=== PATIENT | female | born 2000 | race African-American/Black ===

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

== ENCOUNTER 2020-04-28 05:37 | Emergency (ER) | payer OTHER ==
[~2020-04-28 05:37] MED LIST changes: +AZIT250T6 PO; +BENZ100C PO; +METH4TAB2 PO
[2020-04-28] MEDS ORDERED: TRAM50TA PO (14:32)
[2020-04-28] MEDS ORDERED: METO10TA81 PO (14:32)
== END 2020-04-28 06:06 | disposition left against medical advice (07) ==
LOC: ER 05:37
DX: K80.80 Other cholelithiasis without obstruction (principal); Z53.21 Procedure and treatment not carried out due to patient leaving prior to being seen by health care provider

== ENCOUNTER 2020-04-28 11:20 | Emergency (ER) | payer OTHER ==
[~2020-04-28] VITALS: Ht 152.4 cm; Wt 100.0 kg
[2020-04-28] MEDS ORDERED: IV NORMAL SALINE 1000ML BAG 1,000 ML IV SCH (11:45)
--- NOTE | 2020-04-28 12:01 | PHYS DOC ---
Past Medical History Past Medical History: No Pertinent History Past Surgical History: No Surgical History Smoking Status: Never Smoker Alcohol Use: None Drug Use: Marijuana General Adult EDM: Chief Complaint: ABDOMINAL PAIN HPI: HPI: Patient is a 20 year old female who presented to ER for evaluation of epig astric abdominal pain, right upper quadrant abdominal pain that been going on for a week. Patient went to [facility] in [place] [place] yesterday for the same problem, lab work and ultrasound of her abdomen pelvic show that she had gallstones but no evidence of gallbladder infection, her lab work was normal, her liver function tests were normal. Patient was discharged home, she presented here because the pain she says she cannot keep anything down. Patient denies any cough or fever. Review of Systems: Review of Systems: Constitutional: Denies fever or chills. [] Eyes: Denies change in visual acuity. [] HENT: Denies nasal congestion or sore throat. [] Respiratory: Denies cough or shortness of breath. [] Cardiovascular: Denies chest pain or edema. [] GI: Positive abdominal pain with nausea vomiting. No diarrhea : Denies dysuria. [] Musculoskeletal: Denies back pain or joint pain. [] Integument: Denies rash. [] Neurologic: Denies headache, focal weakness or sensory changes. [] Endocrine: Denies polyuria or polydipsia. [] Lymphatic: Denies swollen glands. [] Psychiatric: Denies depression or anxiety. [] Heart Score: Risk Factors: Risk Factors: DM, Current or recent (<one month) smoker, HTN, HLP, family history of CAD, obesity. Risk Scores: Score 0 - 3: 2.5% MACE over next 6 weeks - Discharge Home Score 4 - 6: 20.3% MACE over next 6 weeks - Admit for Clinical Observation Score 7 - 10: 72.7% MACE over next 6 weeks - Early Invasive Strategies Current Medications: Current Medications Medications (Trade) Dose Ordered Sig/Carol Start Time Stop Time Status Last Admin Dose Admin Ondansetron HCl (Zofran) 4 mg 1X ONCE 04/28/20 12:15 04/28/20 12:16 Sodium Chloride 1,000 ml @ 1,000 mls/hr Q1H 04/28/20 11:45 04/28/20 12:44 Allergies: Allergies: Allergies Coded Allergies Type Severity Reaction Last Updated Verified No Known Drug Allergies 08/16/16 No Physical Exam: PE: Constitutional: Well developed, well nourished, no acute distress, non-toxic appearance. [] HENT: Normocephalic, atraumatic, bilateral external ears normal, oropharynx moist, no oral exudates, nose normal. [] Eyes: PERRLA, EOMI, conjunctiva normal, no discharge. [] Neck: Normal range of motion, no tenderness, supple, no stridor. [] Cardiovascular:Heart rate regular rhythm, no murmur [] Lungs & Thorax: Bilateral breath sounds clear to auscultation [] Abdomen: Bowel sounds normal, soft, There is RUQ tenderness TO PALPATION, no masses, no pulsatile masses. [] Skin: Warm, dry, no erythema, no rash. [] Back: No tenderness, no CVA tenderness. [] Extremities: No tenderness, no cyanosis, no clubbing, ROM intact, no edema. [] Neurologic: Alert and oriented X 3, normal motor function, normal sensory function, no focal deficits noted. [] Psychologic: Affect normal, judgement normal, mood normal. [] Current Patient Data: Labs: Laboratory Tests Test 04/28/20 11:34 04/28/20 11:59 Urine Collection Type Void Urine Color Yellow Urine Clarity Clear Urine pH 8.5 Urine Specific Sheridan 1.025 Urine Protein 30 mg/dL Urine Glucose (UA) Negative mg/dL Urine Ketones (Stick) Trace mg/dL Urine Blood Negative Urine Nitrite Negative Urine Bilirubin Negative Urine Urobilinogen Dipstick 1.0 mg/dL Urine Leukocyte Esterase Small Urine RBC 1-2 /HPF Urine WBC 0 /HPF Urine Squamous Epithelial Cells Mod /LPF Urine Bacteria 0 /HPF Urine Mucus Mod /LPF Urine Opiates Screen Neg Urine Methadone Screen Neg Urine Barbiturates Neg Urine Phencyclidine Screen Neg Urine Amphetamine/Methamphetamine Neg Urine Benzodiazepines Screen Neg Urine Cocaine Screen Neg Urine Cannabinoids Screen Pos Urine Ethyl Alcohol Neg White Blood Count 10.0 x10^3/uL Red Blood Count 4.56 x10^6/uL Hemoglobin 13.5 g/dL Hematocrit 40.2 % Mean Corpuscular Volume 88 fL Mean Corpuscular Hemoglobin 30 pg Mean Corpuscular Hemoglobin Concent 34 g/dL Red Cell Distribution Width 13.1 % Platelet Count 228 x10^3/uL Neutrophils (%) (Auto) 83 % Lymphocytes (%) (Auto) 14 % Monocytes (%) (Auto) 3 % Eosinophils (%) (Auto) 0 % Basophils (%) (Auto) 0 % Neutrophils # (Auto) 8.3 x10^3/uL Lymphocytes # (Auto) 1.3 x10^3/uL Monocytes # (Auto) 0.3 x10^3/uL Eosinophils # (Auto) 0.0 x10^3/uL Basophils # (Auto) 0.0 x10^3/uL Sodium Level 139 mmol/L Potassium Level 3.7 mmol/L Chloride Level 103 mmol/L Carbon Dioxide Level 23 mmol/L Anion Gap 13 Blood Urea Nitrogen 8 mg/dL Creatinine 1.0 mg/dL Estimated GFR (Cockcroft-Gault) 85.5 BUN/Creatinine Ratio 8 Glucose Level 106 mg/dL Calcium Level 9.1 mg/dL Total Bilirubin 0.7 mg/dL Aspartate Amino Transf (AST/SGOT) 17 U/L Alanine Aminotransferase (ALT/SGPT) 28 U/L Alkaline Phosphatase 49 U/L Total Protein 7.7 g/dL Albumin 3.8 g/dL Albumin/Globulin Ratio 1.0 Lipase 119 U/L Serum Test, Qualitative Negative Current Medications Medications (Trade) Dose Ordered Sig/Carol Route PRN Reason Start Time Stop Time Status Last Admin Dose Admin Sodium Chloride 1,000 ml @ 1,000 mls/hr Q1H IV 04/28/20 11:45 04/28/20 12:44 DC 04/28/20 12:51 Ondansetron HCl (Zofran) 4 mg 1X ONCE IVP 04/28/20 12:15 04/28/20 12:16 DC 04/28/20 12:51 Morphine Sulfate (Morphine Sulfate) 4 mg 1X ONCE IV 04/28/20 13:30 04/28/20 13:31 DC 04/28/20 13:16 Metoclopramide HCl (Reglan Vial) 10 mg 1X ONCE IVP 04/28/20 13:30 04/28/20 13:31 DC EKG: EKG: [] Radiology/Procedures: Radiology/Procedures: [][facility] [address] [place], [place] [id number] IMAGING REPORT Signed PATIENT: MCKEONCAITLIN AGEE I ACCOUNT: [id number] : 2000 LOCATION: ER AGE: 20 SEX: F EXAM STATUS: REG ER ORD. PHYSICIAN: PHI MAGANA DO REASON: RUQ abdominal pain PROCEDURE: ABDOMEN LTD STUDY: Realtime grayscale and color Doppler ultrasonography of the right upper quadrant INDICATION: Right upper quadrant pain. COMPARISON: Correlation is made to a CT abdomen/pelvis from 06/11/2017. Findings: Much of the gallbladder lumen is filled with stones/sludge. The gallbladder wall is not significantly thickened nor is there appreciable pericholecystic fluid. No sonographic Major's sign was observed. Within normal limits size and echogenicity of the liver. Normal common bile duct caliber at 0.4 cm. The right kidney measures 10.8 cm in length. Normal cortical thickness and echogenicity. No hydronephrosis. The partially visualized pancreas is unremarkable. Patent main portal vein with hepatopedal flow. Patent IVC at the liver. Impression: 1. Gallstones/sludge filling much of the gallbladder lumen but without ancillary findings by sonography diagnostic of acute cholecystitis. If there is ongoing concern a HIDA scan could be performed to fully assess cystic duct patency. 2. Unremarkable liver, right kidney, partially imaged pancreas and biliary tree. Electronically signed by: KADEN LYNNE MD (04/28/2020 1:51 PM) [id number] DICTATED and SIGNED BY: KADEN LYNNE MD DATE: 04/28/20 [id number] 0 Course & Med Decision Making: Course & Med Decision Making Pertinent Labs and Imaging studies reviewed. (See chart for details) Patient is a 20-year-old female who presented to ER due to nausea vomiting and right upper quadrant abdominal pain, she was found to have multiple gallstones. There is no evidence of acute cholecystitis. Her lab work was normal. Patient was given nausea medication and pain medication in the ER, she feel much better. Patient will be discharged home. She will need to call your general surgeon for outpatient evaluation and treatment. Dragon Disclaimer: Dragshante Disclaimer: This electronic medical record was generated, in whole or in part, using a voice recognition dictation system. Departure Departure Impression: Primary Impression: Biliary colic Disposition: 01 DC HOME SELF CARE/HOMELESS Condition: STABLE Referrals: NERY STEARNS MD (PCP) MAGGI RADER MD Please call this General Surgeon for outpatient follow up next week. Patient Instructions: Biliary Colic Additional Instructions: Thank you for visiting our Emergency Department. We appreciate you trusting us with your care. If any additional problems come up don't hesitate to return to visit us. Please follow up with your primary care provider so they can plan additional care if needed and know about the problem that you had. If symptoms worsen come back to the Emergency Department. Any concerning symptoms that start such as chest pain, shortness of air, weakness or numbness on one side of the body, running high fevers or any other concerning symptoms return to the ER. Scripts Tramadol Hcl (TRAMADOL HCL) 50 Mg Tablet 50 MG PO Q6HRS PRN for PAIN, #15 TAB 0 Refills Prov: PHI MAGANA DO 04/28/20 Metoclopramide Hcl (REGLAN) 10 Mg Tablet 1 TAB PO QID PRN for NAUSEA for 7 Days, #28 TAB 0 Refills before food and bedtime Prov: PHI MAGANA DO 04/28/20 PHI MAGANA DO Apr 28, 2020 12:01
[2020-04-28 12:15] LABS: BILIRUBIN,URINE NEGATIVE (NEG); CLARITY,URINE CLEAR; COLOR,URINE YELLOW; NITRITE,URINE NEGATIVE (NEG); PH,URINE 8.5 (<5.0-8.0); PROTEIN,URINE 30 mg/dL (NEG-TRACE)
[2020-04-28] MEDS ORDERED: ONDANSETRON PF 4 MG/2 ML VIAL. IVP ONE (12:15)
[2020-04-28 12:16] LABS: AMPHETAMINE/METHAMPHETAMINE NEG (NEG); BARBITURATES NEG (NEG); BENZODIAZEPINES NEG (NEG); CANNABINOIDS POS (NEG); COCAINE NEG (NEG); METHADONE NEG (NEG); OPIATES NEG (NEG); PHENCYCLIDINE NEG (NEG)
[2020-04-28 12:17] LABS: BASO % 0 % (0-3); EOS % 0 % (0-3); HEMATOCRIT 40.2 % (36.0-47.0); HEMOGLOBIN 13.5 g/dL (12.0-15.5); LYMPH # 1.3 x10^3/uL (1.0-4.8); LYMPH % 14 % (24-48); MEAN CORPUSCULAR HEMOGLOBIN 30 pg (25-35); MEAN CORPUSCULAR HGB CONC 34 g/dL (31-37); MEAN CORPUSCULAR VOLUME 88 fL (79-100); MONO # 0.3 x10^3/uL (0.0-1.1); MONO % 3 % (0-9); NEUT # 8.3 x10^3/uL (1.8-7.7); NEUT % 83 % (31-73); PLATELET COUNT 228 x10^3/uL (140-400); RED BLOOD COUNT 4.56 x10^6/uL (3.50-5.40); RED CELL DISTRIBUTION WIDTH 13.1 % (11.5-14.5)
[2020-04-28 12:24] LABS: CALCIUM 9.1 mg/dL (8.5-10.1); GFR 85.5; POTASSIUM 3.7 mmol/L (3.5-5.1)
[2020-04-28 12:30] LABS: ALBUMIN 3.8 g/dL (3.4-5.0); TOTAL BILIRUBIN 0.7 mg/dL (0.2-1.0); TOTAL PROTEIN 7.7 g/dL (6.4-8.2)
[2020-04-28 12:33] LABS: PREG TEST PT QUAL NEGATIVE (NEG)
[2020-04-28 12:53] LABS: BACTERIA,URINE 0 /HPF (0-FEW); WBC,URINE 0 /HPF (0-4)
[2020-04-28] MEDS ORDERED: MORPHINE SULFATE 4 MG/ML VIAL. IV ONE (13:30)
[2020-04-28] MEDS ORDERED: METOCLOPRAMIDE HCL 10 MG/2 ML VIAL. IVP ONE (13:30)
--- NOTE | 2020-04-28 13:54 | RAD ---
STUDY: Realtime grayscale and color Doppler ultrasonography of the right upper quadrant INDICATION: Right upper quadrant pain. COMPARISON: Correlation is made to a CT abdomen/pelvis from 06/11/2017. Findings: Much of the gallbladder lumen is filled with stones/sludge. The gallbladder wall is not significantly thickened nor is there appreciable pericholecystic fluid. No sonographic Major's sign was observed. Within normal limits size and echogenicity of the liver. Normal common bile duct caliber at 0.4 cm. The right kidney measures 10.8 cm in length. Normal cortical thickness and echogenicity. No hydroneph rosis. The partially visualized pancreas is unremarkable. Patent main portal vein with hepatopedal flow. Patent IVC at the liver. Impression: 1. Gallstones/sludge filling much of the gallbladder lumen but without ancillary findings by sonogra phy diagnostic of acute cholecystitis. If there is ongoing concern a HIDA scan could be performed to fully assess cystic duct patency. 2. Unremarkable liver, right kidney, partially imaged pancreas and biliary tree. Electronically signed by: KADEN LYNNE MD (04/28/2020 1:51 PM) [id number]
[2020-04-28 14:20] VITALS: BP 114/56
[2020-04-28] MEDS ORDERED: TRAM50TA PO (14:32)
[2020-04-28] MEDS ORDERED: METO10TA81 PO (14:32)
== END 2020-04-28 14:55 | disposition home or self-care (01) ==
LOC: ER 11:20
DX: K80.50 Calculus of bile duct without cholangitis or cholecystitis without obstruction (principal)
CPT/HCPCS: 36415; 76705; 80053; 80307; 81001; 83690; 84703; 85025; 87086; 96361; 96374; 96375; 99285; J2270; J2405; J7030

== ENCOUNTER → 2020-05-14 | Outpatient (CLI) | payer OTHER ==
[2020-04-28 14:20] VITALS: BP 114/56
[~2020-05-14] MED LIST changes: +FAMO20TA5 PO; +IBUP-1060 PO; +IBUP1TAB PO; +METO10TA81 PO; +TRAM50TA PO
== END ==
LOC: LAB 10:23
PROVIDERS: ATTEND Surgery
DX: Z01.812 Encounter for preprocedural laboratory examination (principal); K80.20 Calculus of gallbladder without cholecystitis without obstruction; Z20.822 Contact with and (suspected) exposure to COVID-19
CPT/HCPCS: U0003

== ENCOUNTER 2020-05-18 07:45 | Day surgery (SDC) | payer BC, OTHER ==
[~2020-05-18] VITALS: Ht 152.4 cm; Wt 100.0 kg
[~2020-05-18 07:45] MED LIST changes: +HYDROmorphone 2 MG/ML VIAL IVP PRN; -IBUP1TAB PO; +IV RINGERS,LACTATED 1000ML 1,000 ML IV SCH; +fentaNYL PF VIAL 100 MCG/2 ML VIAL IVP PRN
[2020-05-18] MEDS ORDERED: ONDANSETRON PF 4 MG/2 ML VIAL. ONE (08:19)
[2020-05-18] MEDS ORDERED: DEXAMETHASONE SOD PHOS 4 MG/ML VIAL ONE (08:19)
[2020-05-18] MEDS ORDERED: LIDOCAINE 2% PF 5 ML VIAL. ONE (08:19)
[2020-05-18] MEDS ORDERED: SEVOFLURANE 61 TO 120 MINUTES. IH ONE (08:19)
[2020-05-18] MEDS ORDERED: fentaNYL PF VIAL 100 MCG/2 ML VIAL ONE ×2 (08:19→10:24)
[2020-05-18] MEDS ORDERED: PROPOFOL 10 MG/ML (20ML) VIAL. IV ONE (08:19)
[2020-05-18] MEDS ORDERED: KETOROLAC 30 MG/ML VIAL. ONE (08:19)
[2020-05-18] MEDS ORDERED: ROCURONIUM 50 MG/5 ML VIAL. ONE (08:20)
[2020-05-18] MEDS ORDERED: MIDAZOLAM HCL/PF 2 MG/2 ML VIAL. ONE (08:20)
[2020-05-18] MEDS ORDERED: BUPIVACAINE MPF 0.5% 30 ML VIAL. ONE (09:00)
[2020-05-18] MEDS ORDERED: SURGICEL HEMOSTAT 4X8 EACH. ONE (09:00)
[2020-05-18] MEDS ORDERED: IOHEXOL 300 MG/ML 50 ML VIAL. ONE (09:00)
[2020-05-18] MEDS ORDERED: ESMOLOL 100 MG/10 ML VIAL. IVP ONE (09:43)
[2020-05-18] MEDS ORDERED: NEOSTIGMINE METHYLSULFATE 5 MG/5 ML SYRINGE. ONE (09:52)
[2020-05-18] MEDS ORDERED: GLYCOPYRROLATE 1 MG/5 ML VIAL. ONE (09:52)
--- NOTE | 2020-05-18 10:30 | RAD ---
3 intraoperative spot views of the cholangiogram without comparison for cholecystectomy. Findings and impression: 3 intraoperative spot views demonstrate no residual filling defects within the visualized intrahepatic ducts, with rapid egress of contrast into the duodenum. Fluoroscopy time: 0.12 minutes. Electronically signed by: Levon Latham MD (05/18/2020 10:27 AM) [id number]
--- NOTE | 2020-05-18 10:31 | PDOC4 ---
Operative Note Operative Note Operative Note: Preoperative Diagnosis: Symptomatic cholelithiasis Postoperative Diagnosis: Same Procedure: Laparoscopic cholecystectomy with intraoperative cholangiogram Surgeons: Freddie Boxer Operator: Moses PEREZ Anesthesia: Gen. Estimated Blood Loss: 10 mL Specimen: Gallbladder to pathology Drains: None Complications: None Indications: The patient is a 20-year-old female who is been experiencing recurrent upper abdominal pain consistent with biliary colic. Surgical treatment was offered by means of a laparoscopic cholecystectomy. The risks of surgery were discussed which include bleeding, infection, bile duct injury, bile leak, pain, the potential for additional surgeries or procedures. The patient understands and would like to proceed. Description: The patient was taken to the operating room and laid supine on the operating table. General anesthesia was performed. The abdomen was prepped with ChloraPrep and draped in a standard surgical fashion. A small infraumbilical incision was made with a scalpel. The Veress needle was then inserted and a pneumoperitoneum was then created. A 5 mm trocar was then inserted and the laparoscope was introduced. In the upper midabdomen a 5 mm trocar was inserted and in the right upper quadrant two 2.3 mm mini lap graspers were inserted. The gallbladder was retracted cephalad. The cystic duct was dissected free from surrounding tissues. One clip was placed on the duct near the gallbladder junction. An opening was made in the duct and a cholangiocatheter placed within and secured with a clip. Using contrast dye and fluoroscopy an intraoperative cholangiogram was performed that appeared unremarkable. The clip and catheter were then withdrawn. Three clips were placed on the cystic duct and it was divided. The cystic artery was then identified, dissected free, doubly clipped and divided as well. The gallbladder was then mobilized away from the liver with cautery. The umbilical 5 millimeter trocar was exchanged for an 11 millimeter trocar. The gallbladder was then placed in an endoscopic bag and extracted at the umbilical trocar site. The fascia there was closed with an 0 Vicryl suture. All blood and irrigation fluid was suctioned and hemostasis was good. The remaining ports were removed and the pneumoperitoneum was relieved. The skin incisions were injected with half percent Marcaine with epinephrine, and all were closed using 4-0 Monocryl suture. Steri-Strips and dressings were then applied. The patient tolerated the procedure well and was sent to the recovery room in stable condition. At the end of the case all counts were correct. MAGGI RADER MD May 18, 2020 10:31
--- NOTE | 2020-05-18 10:35 | DISCH ---
DISCHARGE INSTRUCTIONS Condition on Discharge Condition on Discharge: Stable Activity After Discharge Activity Instructions for Disc: Other, see below (no lifting over 20 lbs X 2 weeks) Diet after Discharge Diet after Discharge: Regular Wound Incision Care Wound/Incision Care: Other, see below (may remove bandaids and shower tomorrow, steristrips fall off on their own) Follow-Up Follow up with: Dr Rader in 2 weeks in office, call for appt [phone] MAGGI RADER MD May 18, 2020 10:35
[2020-05-18] MEDS: fentaNYL PF VIAL 100 MCG/2 ML VIAL IVP PRN ×2 (10:45→11:09)
[2020-05-18] MEDS ORDERED: IBUP1TAB PO (10:53)
[2020-05-18] MEDS ORDERED: PROCHLORPERAZINE 10 MG/2 ML VIAL. ONE (11:07)
[2020-05-18] MEDS: PROCHLORPERAZINE 10 MG/2 ML VIAL. IVP PRN ×2 (11:09→11:49)
[2020-05-18] MEDS ORDERED: IBUPROFEN 400 MG TABLET. PO ONE (11:15)
[2020-05-18] MEDS ORDERED: oxyCODONE IR 5 MG TABLET PO ONE (11:15)
[2020-05-18] MEDS ORDERED: MORPHINE SULFATE 2 MG/ML VIAL. ONE (11:21)
[2020-05-18] MEDS: MORPHINE SULFATE 2 MG/ML VIAL. IVP PRN ×2 (11:23→11:32)
[2020-05-18 11:50] VITALS: BP 128/58
--- NOTE | 2020-05-20 20:36 | PATHOLOGY ---
[facility] Accession Number: [id number] . 01 Material submitted: . gallbladder - GALLBLADDER AND CONTENTS . 01 Clinical history: . SYMPTOMATIC CHOLELITHASIS . 02 Diagnosis: Gallbladder, laparoscopic cholecystectomy: - Cholelithiasis. - Cholesterolosis. - Chronic cholecystitis. . ([facility]:mm; 05/20/2020) [facility] 05/20/2020 1557 Local . 02 Comment: There is no evidence of malignancy. . ([facility]; 05/20/2020) . 02 Electronically signed: . Elmo Pollard MD, Pathologist NPI- [id number] . 01 Gross description: . The specimen is received in formalin, labeled "Erendira Villarreal, gallbladder and contents". Received is a previously opened gallbladder measuring 8.7 x 2.5 x 1.0 cm in greatest dimensions displaying a pink-dowling serosal surface. Opening the specimen reveals a velvety, light patino mucosa with a gallbladder wall thickness of 0.1 cm. Calculi are present displaying a bright yellow and multifaceted to friable appearance. No distinct nodules or lesions are noted grossly. Boiler Attendant sections, to include the proximal margin, are submitted in cassette A1. ([facility]; 05/19/2020) QAC/QAC 05/19/2020 1508 Local . 02 Pathologist provided ICD-10: K80.10, K82.4 . 02 CPT . 341699 Specimen Comment: A courtesy copy of this report has been sent to [phone] Specimen Comment: Report sent to / Performed at: [address], [place], [place] [id number] MD Russell Lott MD Phone: [phone] Performed at: [address] [id number] MD Elmo Pollard MD Phone: [phone]
[2020-05-20] MEDS ORDERED: TRAM50TA PO (21:02)
[2020-05-20] MEDS ORDERED: ONDA4TAB12 PO (21:02)
[2020-05-20] MEDS ORDERED: HYDR-2761 PO (21:02)
[2020-05-20] MEDS ORDERED: DOCU240C13 PO (21:04)
== END 2020-05-18 12:25 | disposition home or self-care (01) ==
LOC: SURG 07:45
PROVIDERS: ATTEND Surgery
DX: K80.80 Other cholelithiasis without obstruction (principal); K21.9 Gastro-esophageal reflux disease without esophagitis; F17.210 Nicotine dependence, cigarettes, uncomplicated; Z79.899 Other long term (current) drug therapy; Z98.890 Other specified postprocedural states; Z72.89 Other problems related to lifestyle; Z88.8 Allergy status to other drugs, medicaments and biological substances
CPT/HCPCS: 47563; 74300; 81025; A4314; A4364; A6219; J0690; J0780; J1100; J1885; J2250; J2270; J2405; J2704; J2710; J3010; J3490; Q9967; A4452

== ENCOUNTER 2020-07-22 14:10 | Emergency (ER) | payer BC, OTHER ==
[~2020-07-22] VITALS: Ht 152.4 cm; Wt 97.7 kg
[~2020-07-22 14:10] MED LIST changes: +DOCU240C13 PO; +HYDR-2761 PO; -HYDROmorphone 2 MG/ML VIAL IVP PRN; +IBUP1TAB PO; -IV RINGERS,LACTATED 1000ML 1,000 ML IV SCH; +ONDA4TAB12 PO; -fentaNYL PF VIAL 100 MCG/2 ML VIAL IVP PRN
[2020-07-22 14:55] VITALS: BP 114/73
[2020-07-22] MEDS ORDERED: HYDR-2761 PO (15:02)
[2020-07-22] MEDS ORDERED: SULF1TAB24 PO (15:02)
--- NOTE | 2020-07-22 15:02 | PHYS DOC ---
Past Medical History Past Medical History: GERD Past Surgical History: Cholecystectomy Smoking Status: Current Some Day Smoker Alcohol Use: Rarely Drug Use: Marijuana General Adult EDM: Chief Complaint: ABSCESS HPI: HPI: Patient is a 20 year old female who presents to the ED today with an abscess on the left thigh that began 2 to 3 days ago. Patient denies any fever. She states she has had an abscess to the same place before. She would like the abscess surgically removed Review of Systems: Review of Systems: Constitutional: Denies fever or chills. [] Musculoskeletal: Denies back pain or joint pain. [] Integument: Reports abscess to the left thigh Neurologic: Denies headache, focal weakness or sensory changes. [] Psychiatric: Denies depression or anxiety. [] Heart Score: C/O Chest Pain: N/A Risk Factors: Risk Factors: DM, Current or recent (<one month) smoker, HTN, HLP, family history of CAD, obesity. Risk Scores: Score 0 - 3: 2.5% MACE over next 6 weeks - Discharge Home Score 4 - 6: 20.3% MACE over next 6 weeks - Admit for Clinical Observation Score 7 - 10: 72.7% MACE over next 6 weeks - Early Invasive Strategies Allergies: Allergies: Allergies Coded Allergies Type Severity Reaction Last Updated Verified acetaminophen Adverse Reaction Intermediate ITCHING 05/20/20 Yes Physical Exam: PE: Constitutional: Well developed, well nourished, no acute distress, non-toxic appearance. [] [] Skin: Left medial thigh with an indurated area roughly 5 x 1 cm. The area is fluctuant, there is slight erythema over the region. There is tenderness over the region. There is scar tissue surrounding the region Back: No tenderness, no CVA tenderness. [] Extremities: No tenderness, no cyanosis, no clubbing, ROM intact, no edema. [] Neurologic: Alert and oriented X 3, normal motor function, normal sensory function, no focal deficits noted. [] Psychologic: Affect normal, judgement normal, mood normal. [] EKG: EKG: [] Radiology/Procedures: Radiology/Procedures: [] Course & Med Decision Making: Course & Med Decision Making Pertinent Labs and Imaging studies reviewed. (See chart for details) This is a 20-year-old female patient presenting to the ED today with an abscess of the left thigh for 2 to 3 days. She has had an abscess there before. She prefers it surgically removed so it does not get it back again. Recommended following up with a general surgeon to have it surgically removed. Discharged on Bactrim and hydrocodone for pain. Warm compresses recommended to the area. Tetanus up-to-date Neto Disclaimer: Neto Disclaimer: This electronic medical record was generated, in whole or in part, using a voice recognition dictation system. Departure Departure Impression: Primary Impression: Abscess of left thigh Disposition: HOME / SELF CARE / HOMELESS Condition: STABLE Referrals: NERY STEARNS MD (PCP) MAGGI RADER MD follow up in 1 week Patient Instructions: Abscess Additional Instructions: You have an abscess to the left thigh, please contact your general surgeon and set up a follow-up appointment. Apply warm compresses to the area. Complete the prescribed antibiotics. Scripts Hydrocodone Bit/Acetaminophen (HYDROCODONE-APAP 5-325 ) 1 Tab Tablet 1 TAB PO PRN Q6HRS PRN for PAIN, #10 TAB 0 Refills Prov: AICHA BURGOS APRN 07/22/20 Sulfamethoxazole/Trimethoprim (BACTRIM DS TABLET) 1 Each Tablet 1 TAB PO BID for 10 Days, #20 TAB 0 Refills Prov: AICHA BURGOS APRN 07/22/20 AICHA BURGOS APRN July 22, 2020 15:02
== END 2020-07-22 15:10 | disposition home or self-care (01) ==
LOC: ER 14:10
DX: L02.416 Cutaneous abscess of left lower limb (principal); K21.9 Gastro-esophageal reflux disease without esophagitis; F17.200 Nicotine dependence, unspecified, uncomplicated; Z88.6 Allergy status to analgesic agent
CPT/HCPCS: 99283